=== PATIENT | male | born 1995 | race Two or more races ===

== ENCOUNTER 2018-10-23 11:10 | Inpatient (IN) | payer OTHER ==
[~2018-10-23] VITALS: Ht 185.4 cm; Wt 75.2 kg
[2018-10-23] MEDS ORDERED: SODIUM CHLORIDE 0.9% 1,000 ML IV ONE (11:15)
--- NOTE | 2018-10-23 11:22 | NUR ---
Note undone in EDM - 10/23/18 at 1127 by DELLA PER EMS: WITNESSED SEIZURE XX 5 MIN. NO PRIOR SEIZURE HX. PT WAS AT WORK. ACCOMPANIED TO ED BY BROTHER. PER BROTHER: PT TAKING METHADONE FOR HX HEROIN ABUSE, DRINKS ETOH, SMOKES MARIJUANA, ATE MUSHROOMS LAST WEEK, DENIES OTHER HX & RX. PT CURRENTLY UNRESPONSIVE, RESP EVEN & UNLABORED, SKIN HOT TO TOUCH, PUPILS FIXED.
--- NOTE | 2018-10-23 11:26 | NUR ---
EKG DONE, CXR DONE.
[2018-10-23] MEDS ORDERED: SODIUM CHLORIDE FLUSH 10ML SYR IVF ONE (11:30)
[2018-10-23] MEDS ORDERED: PLEASE ENTER HEIGHT AND WEIGHT MC SCH (11:30)
[2018-10-23] MEDS ORDERED: PLEASE ENTER ALLERGIES MC SCH (11:30)
[2018-10-23] MEDS ORDERED: SODIUM CHLORIDE 0.9% 1,000ML IVBOLUS ONE (11:30)
[2018-10-23] MEDS ORDERED: METHADONE (11:38)
--- NOTE | 2018-10-23 11:50 | NUR ---
O2 MASK APPLIED FOR LOW O2 SAT. O2 INCREASED TO 98%. LABS DRAWN, INCLUDING CULTURES. PT HAS BEEN INCONTINENT OF URINE & STOOL.
[2018-10-23 11:55] LABS: BASOPHILS # (AUTO) 0.06 x10^3/uL (0-0.1); BASOPHILS % (AUTO) 1 % (0-1); EOSINOPHILS # (AUTO) 0.05 x10^3/uL (0-0.4); EOSINOPHILS % (AUTO) 1 % (1-7); LYMPHOCYTES # (AUTO) 2.62 x10^3/uL (1-3.4); LYMPHOCYTES % (AUTO) 24 % (22-44); MD NO; MEAN CORPUSCULAR HEMOGLOBIN 31.8 pg (27.5-34.5); MEAN CORPUSCULAR HGB CONC 32.7 g/dL (33.2-36.2); MEAN PLATELET VOLUME 8.4 fL (7.4-10.4); MONOCYTES % (AUTO) 6 % (2-9); NEUTROPHILS # (AUTO) 7.49 x10^3/uL (1.8-6.8); NEUTROPHILS % (AUTO) 69 % (42-75); PLATELET COUNT 307 x10^3/uL (130-400); RED BLOOD COUNT 4.49 x10^6/uL (4.38-5.82); RED CELL DISTRIBUTION WIDTH 13.8 % (9.4-14.8)
--- NOTE | 2018-10-23 11:58 | NUR ---
SBAR TO TERESA WHITMAN AND TERESA JOSE.
--- NOTE | 2018-10-23 12:02 | NUR ---
I AM ASSUMING CARE OF THIS PT FROM CARLOS (TERESA) AT [facility] TIME. SBAR REP[ORT WAS EXCHANGED AT THE BEDSIDE.
--- NOTE | 2018-10-23 12:02 | NUR ---
PT TO BE MOVED TO CORE ROOM PER URIEL Molina/ RN'S
[2018-10-23 12:05] LABS: INTERNATIONAL NORMALIZED RATIO 1.08 (0.93-1.1); PROTHROMBIN TIME 11.3 Seconds (9.6-11.5)
[2018-10-23 12:12] LABS: CHLORIDE 106 mmol/L (98-107)
[2018-10-23] MEDS ORDERED: NALOXONE 0.4 MG/ML, 1ML ONE (12:12)
[2018-10-23] MEDS ORDERED: ONDANSETRON 2MG/ML, 2ML ONE ×2 (12:18→15:25)
[2018-10-23] MEDS ORDERED: LORazepam 2 MG/ML, 1ML ONE ×2 (12:23→12:53)
[2018-10-23 12:27] LABS: ALANINE AMINOTRANSFERASE 172 U/L (12-78); ALBUMIN 4.3 g/dL (3.4-5.0); ANION GAP 21 mmol/L (5-15); CALCIUM 9.1 mg/dL (8.5-10.1); CREATININE 1.54 mg/dL (0.7-1.3); SALICYLATE LEVEL 1.9 mg/dL (2.8-20.0)
[2018-10-23] MEDS ORDERED: LORazepam 2 MG/ML, 1ML IVPush ONE ×2 (12:30→13:00)
[2018-10-23] MEDS ORDERED: ONDANSETRON 2MG/ML, 2ML IVPush ONE ×2 (12:30→16:00)
[2018-10-23] MEDS ORDERED: NALOXONE 0.4 MG/ML, 1ML IVPush PRN (12:30)
--- NOTE | 2018-10-23 12:30 | NUR ---
PT VERY IRRITABLE AND HAVING DIFFICULTY SITTING STILL. HE IS DRY HEAVING, AND SWEATY. I WILL MEDICATE PER THE MAR.
[2018-10-23 12:36] LABS: ALKALINE PHOSPHATASE 164 U/L (45-117); BILIRUBIN,TOTAL 0.8 mg/dL (0.2-1.0); CREATINE KINASE, TOTAL 304 U/L (39-308); TOTAL PROTEIN 8.5 g/dL (6.4-8.2)
--- NOTE | 2018-10-23 13:01 | NUR ---
AFTER MEDICATIONS, WE WILL GO TO CT.
--- NOTE | 2018-10-23 13:19 | NUR ---
PT TO AND FROM CT W MYSELF AND A TECH. HE TOLERATED THE IMAGING WELL, ALTHOUGH HE WAS HIGHLY IRRITABLE WITH BED TO TABLE TRANSFER.
[2018-10-23] MEDS ORDERED: METH40TA3 PO (13:26)
--- NOTE | 2018-10-23 13:31 | NUR ---
pt is resting on an e.r. gurney. no acute distress noted at this time. vs are stable, and wdl. we are awaiting the results of imaging prior to formulating a furhter plan of care. i anticipate an icu admission, and will monitor and treat this pt as ordfwered, as well as prn.
[2018-10-23] MEDS ORDERED: SODIUM CHLORIDE FLUSH 10ML SYR IVF PRN (14:00)
--- NOTE | 2018-10-23 14:37 | NUR ---
hector (rn) are assuming care of this patient at this time. sbar report was exchanged at the bedside.
--- NOTE | 2018-10-23 14:40 | NUR ---
REPORT FROM ANTONETTE MOORE. PT LAYING ON GURNEY, EYES CLOSED, RESPONDS TO VERBAL STIMULI, STEFFEN MACK. BROTHER AT BEDSIDE.
--- NOTE | 2018-10-23 16:00 | NUR ---
DR JAVIER AT BEDSIDE, PT ASSESSMENT REVIEWED, ADMIT ORDERS REC'D.
[2018-10-23 16:01] LABS: MICROSCOPIC INDICATED
[2018-10-23 16:09] LABS: CULTURE INDICATED? NO
[2018-10-23 16:13] LABS: AMPHETAMINE SCREEN, URINE Negative (Negative); BARBITURATE SCREEN, URINE Negative (Negative); BENZODIAZEPINE SCREEN, URINE Positive (Negative); CANNABINOID SCREEN, URINE Positive (Negative); COCAINE SCREEN, URINE Negative (Negative); METHADONE SCREEN, URINE Positive (Negative); OPIATE SCREEN, URINE Negative (Negative)
--- NOTE | 2018-10-23 16:28 | NUR ---
PT TO MRI WITH TECH TRANSPORT.
[2018-10-23] MEDS: HEPARIN 5,000 UNITS/ML, 1ML SQ SCH ×2 (16:30→20:04)
[2018-10-23] MEDS: INSULIN LISPRO 100 UNITS/ML, PEN SQ-INSULIN SCH ×2 (16:30→19:58)
[2018-10-23] MEDS ORDERED: hydrALAzine 20 MG/ML, 1ML IVPush PRN (16:30)
[2018-10-23] MEDS ORDERED: LORazepam 2 MG/ML, 1ML IVPush PRN (16:30)
[2018-10-23] MEDS ORDERED: LABETALOL 5 MG/ML SYRINGE IVPush PRN (16:30)
[2018-10-23] MEDS ORDERED: GADOBUTROL 7.5 MMOL/7.5 ML PFS ONE (16:50)
[2018-10-23] MEDS: SODIUM CHLORIDE 0.9% 1,000 ML IV SCH ×2 (17:36→23:51)
[2018-10-23 17:38] LABS: ANION GAP 5 mmol/L (5-15); CALCIUM 8.6 mg/dL (8.5-10.1); CHLORIDE 112 mmol/L (98-107); CREATININE 1.24 mg/dL (0.7-1.3)
[2018-10-23 17:47] LABS: HEMOGLOBIN A1C 4.8 % (4.2-6.3)
[2018-10-23 17:52] VITALS: BP 128/76
[2018-10-23] MEDS ORDERED: ACETAMINOPHEN 325 MG TABLET PO PRN (18:30)
[2018-10-23 19:02] VITALS: BP 137/89
[2018-10-23] MEDS: ONDANSETRON 2MG/ML, 2ML IVPush PRN (20:17)
[2018-10-24] MEDS ORDERED: LORazepam 1MG TABLET PO PRN (00:30)
[2018-10-24] MEDS ORDERED: LORazepam 2 MG/ML, 1ML IV PRN (00:30)
[2018-10-24 01:45] VITALS: BP 125/82
[2018-10-24] MEDS: HEPARIN 5,000 UNITS/ML, 1ML SQ SCH ×3 (05:32→20:53)
[2018-10-24 05:46] LABS: ALBUMIN 3.8 g/dL (3.4-5.0); ANION GAP 11 mmol/L (5-15); CALCIUM 8.8 mg/dL (8.5-10.1); CHLORIDE 107 mmol/L (98-107)
[2018-10-24 05:51] LABS: ALANINE AMINOTRANSFERASE 172 U/L (12-78); ALKALINE PHOSPHATASE 107 U/L (45-117); BILIRUBIN,TOTAL 1.2 mg/dL (0.2-1.0); CREATININE 1.71 mg/dL (0.7-1.3); TOTAL PROTEIN 7.6 g/dL (6.4-8.2)
[2018-10-24 06:10] LABS: BASOPHILS # (AUTO) 0.01 x10^3/uL (0-0.1); BASOPHILS % (AUTO) 0 % (0-1); EOSINOPHILS % (AUTO) 0 % (1-7); LYMPHOCYTES # (AUTO) 0.96 x10^3/uL (1-3.4); LYMPHOCYTES % (AUTO) 8 % (22-44); MD NO; MEAN CORPUSCULAR HEMOGLOBIN 31.7 pg (27.5-34.5); MEAN CORPUSCULAR HGB CONC 32.8 g/dL (33.2-36.2); MEAN CORPUSCULAR VOLUME 96.5 fL (81-97); MEAN PLATELET VOLUME 9.1 fL (7.4-10.4); MONOCYTES % (AUTO) 11 % (2-9); NEUTROPHILS # (AUTO) 10.34 x10^3/uL (1.8-6.8); NEUTROPHILS % (AUTO) 81 % (42-75); PLATELET COUNT 207 x10^3/uL (130-400); RED BLOOD COUNT 4.38 x10^6/uL (4.38-5.82); RED CELL DISTRIBUTION WIDTH 13.2 % (9.4-14.8)
[2018-10-24 06:44] VITALS: BP 135/69
[2018-10-24] MEDS: SODIUM CHLORIDE 0.9% 1,000 ML IV SCH (06:57)
[2018-10-24] MEDS: INSULIN LISPRO 100 UNITS/ML, PEN SQ-INSULIN SCH (07:00)
[2018-10-24] MEDS: CHLORDIAZEPOXIDE 25 MG CAPSULE PO SCH ×3 (08:26→20:52)
[2018-10-24] MEDS: FOLIC ACID 1 MG TABLET PO SCH (08:26)
[2018-10-24] MEDS: MULTIVITAMINS/MINERALS TABLET PO SCH (08:27)
[2018-10-24] MEDS: THIAMINE 100MG TABLET PO SCH ×2 (08:27→20:52)
[2018-10-24] MEDS: LACTATED RINGERS 1,000 ML IV SCH ×3 (08:27→23:29)
[2018-10-24] MEDS ORDERED: OXYcodone IR 5MG TABLET PO PRN (08:30)
[2018-10-24] MEDS ORDERED: LACTULOSE 20 GM/30 ML UDC PO SCH (09:00)
[2018-10-24] MEDS: ONDANSETRON 2MG/ML, 2ML IVPush PRN (10:21)
[2018-10-24 13:06] VITALS: BP 109/63
[2018-10-24 19:17] VITALS: BP 126/73
[2018-10-25 01:12] VITALS: BP 124/86
[2018-10-25] MEDS: HEPARIN 5,000 UNITS/ML, 1ML SQ SCH ×2 (05:09→13:00)
[2018-10-25] MEDS: LACTATED RINGERS 1,000 ML IV SCH (05:10)
[2018-10-25 06:36] LABS: ALANINE AMINOTRANSFERASE 198 U/L (12-78); ALBUMIN 3.2 g/dL (3.4-5.0); CALCIUM 9.1 mg/dL (8.5-10.1); CREATININE 1.33 mg/dL (0.7-1.3)
[2018-10-25 06:39] LABS: MEAN CORPUSCULAR HEMOGLOBIN 31.1 pg (27.5-34.5); MEAN CORPUSCULAR HGB CONC 32.6 g/dL (33.2-36.2); MEAN CORPUSCULAR VOLUME 95.4 fL (81-97); PLATELET COUNT 193 x10^3/uL (130-400); RED BLOOD COUNT 4.54 x10^6/uL (4.38-5.82); RED CELL DISTRIBUTION WIDTH 13.8 % (9.4-14.8)
[2018-10-25 06:41] LABS: MD YES
[2018-10-25 06:43] LABS: <RBC MORPHOLOGY> NORMAL; LYMPH#(MANUAL) 1.79 x10^3/uL (1-3.4); LYMPHS% (MANUAL) 16 % (22-44); METAMYELOCYTES# (MANUAL) 0.22 x10^3/uL (0-0); METAMYELOCYTES% (MANUAL) 2 % (0-1); MONOS#(MANUAL) 1.01 x10^3/uL (0.3-2.7); MONOS% (MANUAL) 9 % (2-9); SEG#(MANUAL) 8.18 x10^3/uL (1.8-6.8); SEGS% (MANUAL) 73 % (42-75)
[2018-10-25 06:44] LABS: <PLATELET ESTIMATE> ADEQUATE; <PLT MORPHOLOGY> NORMAL PLT MORPH
[2018-10-25 06:52] VITALS: BP 142/72
[2018-10-25 06:53] LABS: ANION GAP 7 mmol/L (5-15); CHLORIDE 110 mmol/L (98-107)
[2018-10-25 08:24] LABS: ALKALINE PHOSPHATASE 86 U/L (45-117); BILIRUBIN,TOTAL 0.6 mg/dL (0.2-1.0); TOTAL PROTEIN 6.9 g/dL (6.4-8.2)
[2018-10-25] MEDS: THIAMINE 100MG TABLET PO SCH (09:42)
[2018-10-25] MEDS: MULTIVITAMINS/MINERALS TABLET PO SCH (09:42)
[2018-10-25] MEDS: FOLIC ACID 1 MG TABLET PO SCH (09:43)
[2018-10-25] MEDS: CHLORDIAZEPOXIDE 25 MG CAPSULE PO SCH (09:43)
[2018-10-25] MEDS ORDERED: FOLI-17 PO (13:36)
[2018-10-25] MEDS ORDERED: THIA100T67 PO (13:36)
[2018-10-25 14:56] VITALS: BP 133/68
[2018-10-26] MEDS ORDERED: LACTATED RINGERS 1,000 ML IV SCH (08:00)
== END 2018-10-25 15:22 | disposition home or self-care (01) | DRG 70 ==
LOC: ED 13:52 → EDIP 13:53 → ED 14:44 → 4WST 17:24 → DCLOUNGE 10-25 15:10
PROVIDERS: ADMIT Internal Medicine; ATTEND Internal Medicine
DX: G93.41 Metabolic encephalopathy (principal); N17.0 Acute kidney failure with tubular necrosis; E87.2 Acidosis; F11.20 Opioid dependence, uncomplicated; B19.20 Unspecified viral hepatitis C without hepatic coma; D72.829 Elevated white blood cell count, unspecified; E11.65 Type 2 diabetes mellitus with hyperglycemia; F12.90 Cannabis use, unspecified, uncomplicated; F17.200 Nicotine dependence, unspecified, uncomplicated; F10.10 Alcohol abuse, uncomplicated
CPT/HCPCS: 36415; 36600; 70450; 70553; 71045; 76700; 80047; 80048; 80053; 80307; 81001; 82140; 82550; 82607; 82800; 82962; 83036; 83605; 83735; 84100; 84443; 85025; 85610; 85730; 86704; 86706; 86708; 86803; 87040; 87340; 93005; 95819; 96374; 96375; 96376; A9585; G0378; J1644; J2310; J2405; J2060; J7030; J7120

== ENCOUNTER 2019-04-10 16:47 | Emergency (ER) | payer SELFPAY ==
[~2019-04-10 16:47] MED LIST: FOLI-17 PO; METH40TA3 PO; METHADONE; THIA100T67 PO
--- NOTE | 2019-04-10 17:06 | NUR ---
PT CALLED TO TRIAGE, NOT IN LOBBY X1.
--- NOTE | 2019-04-10 17:20 | NUR ---
PT CALLED TO TRIAGE, NOT IN LOBBY X2.
--- NOTE | 2019-04-10 17:42 | NUR ---
PT CALLED TO TRIAGE, NOT IN LOBBY X3.
== END 2019-04-10 18:11 | disposition left against medical advice (07) ==
LOC: ED 18:05
DX: S61.412A Laceration without foreign body of left hand, initial encounter (principal); X58.XXXA Exposure to other specified factors, initial encounter; Z53.21 Procedure and treatment not carried out due to patient leaving prior to being seen by health care provider